=== PATIENT | male | born 1980 | race Caucasian/White ===

== ENCOUNTER 2017-04-16 19:40 | Emergency (ER) | payer BC ==
[2017-04-16 19:50] VITALS: BP 125/75
[2017-04-16] MEDS ORDERED: TETRACAINE 0.5% OPHTH SOLUTION 4ML BOTTLE. OS ONE (20:15)
[2017-04-16] MEDS ORDERED: FLUORESCEIN OPHTH TEST STRIP. OS ONE (20:15)
[2017-04-16] MEDS ORDERED: ERYT1OIN6 OP (20:30)
[2017-04-16] MEDS ORDERED: HYDR-971 PO (20:30)
--- NOTE | 2017-04-16 20:30 | PHYS DOC ---
Past Medical History Past Medical History: Other Additional Past Medical Histor: hodgkin's lymphoma Past Surgical History: Tonsillectomy, Other Additional Past Surgical Histo: lymphoma, addenectomy Alcohol Use: Occasionally Drug Use: None Adult General Chief Complaint Chief Complaint: FOREIGN BODY/EYES HPI HPI Patient is a 37 year old male who presents stating he believes a piece of metal got into his left eye today. Patient denies any vision loss Review of Systems Review of Systems Constitutional: Denies fever or chills [] Eyes: a piece of metal got into his left eye Musculoskeletal: Denies back pain or joint pain [] Integument: Denies rash or skin lesions [] Neurologic: Denies headache, focal weakness or sensory changes [] Current Medications Current Medications Current Medications Medications (Trade) Dose Ordered Sig/Meenu Start Time Stop Time Status Last Admin Dose Admin Diphtheria/ Tetanus/Acell Pertussis (Boostrix) 0.5 ml ONCE ONCE 04/16/17 21:00 04/16/17 21:01 Fluorescein Sodium (Ful-Juli) 1 strip 1X ONCE 04/16/17 20:15 04/16/17 20:16 DC 04/16/17 20:15 1 STRIP Tetracaine HCl (Tetracaine) 1 drop 1X ONCE 04/16/17 20:15 04/16/17 20:16 DC 04/16/17 20:15 1 DROP Allergies Allergies Allergies Coded Allergies Type Severity Reaction Last Updated Verified promethazine Allergy Intermediate 04/16/17 Yes Physical Exam Physical Exam Constitutional: Well developed, well nourished, no acute distress, non-toxic appearance. [] HENT: Normocephalic, atraumatic, bilateral external ears normal, oropharynx moist, no oral exudates, nose normal. [] Eyes: PERRLA, EOMI, left cornea with an obvious rust ring at approximately 1500 position Skin: Warm, dry, no erythema, no rash. [] Back: No tenderness, no CVA tenderness. [] Extremities: No tenderness, no cyanosis, no clubbing, ROM intact, no edema. [] Neurologic: Alert and oriented X 3, normal motor function, normal sensory function, no focal deficits noted. [] Current Patient Data Vital Signs Vital Signs Date Time Temp Pulse Resp B/P (MAP) Pulse Ox O2 Delivery O2 Flow Rate FiO2 04/16/17 19:50 97.9 67 18 100 Room Air 97.9 EKG EKG [] Radiology/Procedures Radiology/Procedures [] Course & Med Decision Making Course & Med Decision Making Pertinent Labs and Imaging studies reviewed. (See chart for details) Patient has a rust ring on the left cornea. Discharged with erythromycin eye ointment and instructed to follow-up with the fruit sorter on Wednesday for removal. Discharged with with hydrocodone as needed for pain. Tetanus updated. Dragon Disclaimer Dragon Disclaimer This electronic medical record was generated, in whole or in part, using a voice recognition dictation system. Departure Departure Impression: Primary Impression: Eye foreign body Disposition: HOME, SELF-CARE Condition: STABLE Referrals: NO PCP (PCP) Marv WHITE MD follow up in one week Patient Instructions: Eye - Foreign Body, [id number] Additional Instructions: You have a foreign body to the right eye. Follow-up with the provided fruit sorter on Wednesday for removal. You can patch the eye for comfort. Use the prescribed antibiotic ointment as ordered. Scripts Hydrocodone/Apap 5-325 (NORCO 5-325 TABLET) 1 Each Tablet 1 TAB PO PRN Q6HRS Y for PAIN, #20 TAB 0 Refills Prov: KING SOTELO APRN 04/16/17 Erythromycin Base (Erythromycin) 1 Gm Oint...g. 1 APPLIC OP Q4HRS W/A, #1 MISC Prov: KING SOTELO APRN 04/16/17 Problem Qualifiers Primary Impression: Eye foreign body Encounter type: initial encounter Laterality: right Qualified Codes: T15.91XA - Foreign body on external eye, part unspecified, right eye, initial encounter KING SOTELO APRN Apr 16, 2017 20:30
[2017-04-16] MEDS ORDERED: DIPHTH,PERTUSS(ACELL),TET TOX 0.5 ML DISP.SYRIN. VAX IM ONE (21:00)
== END 2017-04-16 20:35 | disposition home or self-care (01) ==
LOC: ER 19:40
DX: T15.92XA Foreign body on external eye, part unspecified, left eye, initial encounter (principal); Z85.71 Personal history of Hodgkin lymphoma; Z88.8 Allergy status to other drugs, medicaments and biological substances
CPT/HCPCS: 90471; 90715; 99283-25

== ENCOUNTER 2021-04-15 12:45 | Emergency (ER) | payer BC ==
[~2021-04-15] VITALS: Ht 175.3 cm; Wt 109.0 kg
[~2021-04-15 12:45] MED LIST: ERYT1OIN6 OP; HYDR-3164 PO
[2021-04-15 15:00] LABS: BASO # 0.1 x10^3/uL (0.0-0.2); BASO % 1 % (0-3); BILIRUBIN,URINE NEGATIVE (NEG); CLARITY,URINE CLEAR; COLOR,URINE YELLOW; EOS # 0.3 x10^3/uL (0.0-0.7); EOS % 3 % (0-3); HEMATOCRIT 49.2 % (39.0-53.0); HEMOGLOBIN 17.1 g/dL (13.0-17.5); LYMPH # 1.6 x10^3/uL (1.0-4.8); LYMPH % 14 % (24-48); MEAN CORPUSCULAR HEMOGLOBIN 31 pg (25-35); MEAN CORPUSCULAR HGB CONC 35 g/dL (31-37); MEAN CORPUSCULAR VOLUME 90 fL (79-100); MONO % 9 % (0-9); NEUT % 73 % (31-73); NITRITE,URINE NEGATIVE (NEG); PLATELET COUNT 313 x10^3/uL (140-400); PROTEIN,URINE NEGATIVE (NEG-TRACE); RED BLOOD COUNT 5.49 x10^6/uL (4.30-5.70); RED CELL DISTRIBUTION WIDTH 12.6 % (11.5-14.5); UROBILINOGEN,URINE 0.2 mg/dL (0.2 mg/dL); WHITE BLOOD COUNT 10.9 x10^3/uL (4.0-11.0)
[2021-04-15 15:05] LABS: BACTERIA,URINE 0 /HPF (0-FEW); RBC,URINE OCC /HPF (0-2); WBC,URINE 0 /HPF (0-4)
[2021-04-15] MEDS ORDERED: MORPHINE SULFATE 4 MG/ML INJ. IVP ONE (15:15)
[2021-04-15] MEDS ORDERED: ONDANSETRON PF 4 MG/2 ML VIAL. IVP ONE (15:15)
[2021-04-15] MEDS ORDERED: IV NORMAL SALINE 1000ML BAG 1,000 ML IV SCH (15:15)
--- NOTE | 2021-04-15 15:15 | PHYS DOC ---
Past Medical History Past Medical History: Other Additional Past Medical Histor: hodgkin's lymphoma Past Surgical History: Tonsillectomy, Other Additional Past Surgical Histo: lymphoma, addenectomy, ADNOIDS Smoking Status: Never Smoker Alcohol Use: None Drug Use: None General Adult EDM: Chief Complaint: ABDOMINAL PAIN Problems: (1) Abdominal pain HPI: HPI: 41-year-old male complaining of right lateral abdominal pain for the past 4 days. He reports the pain is progressively gotten worse, now spreading up from the right lower quadrant. He reported spine Anastasia tenderness is in the right lower quadrant as of now. He also has some diarrhea over the last 4 days associated with some nausea and vomiting. He also reports intermittent fever and chills with the right lower quadrant pain. He denies any urinary changes. He has never had surgery in his abdomen but he does have a history of Hodgkin's lymphoma in the past. The patient denies chest pain, shortness of breath, abdominal pain, urinary symptoms, cough, recent trauma, recent illness, Covid contact or any other complaints. Review of Systems: Review of Systems: Constitutional: Denies fever or chills. Eyes: Denies change in vision, pain. HENT: Denies congestion or sore throat. Respiratory: Denies cough or shortness of breath. Cardiovascular: Denies chest pain or edema. GI: +abdominal pain, nausea, diarrhea; denies vomiting. : Denies change in urination, dysuria. Musculoskeletal: Denies extremity pain, or trauma. Skin: Denies rash, skin change. Neurologic: Denies headache, focal weakness. Psychiatric: Denies depression or anxiety. All other systems reviewed as negative except for what was mentioned in the HPI. Heart Score: C/O Chest Pain: No Family History: Family History: non contributory Current Medications: My Orders - ARA JEFFERSON DO Procedure Category Date Status Time Cbc W [place] LAB 04/15/21 Complete 14:47 Comprehensive LAB 04/15/21 In Process Metabolic Panel 14:47 Ua, Cult If Indicated LAB 04/15/21 Complete 14:47 Vital Signs Monitoring ER 04/15/21 Transmitted 15:07 Blood Pressure ER 04/15/21 Transmitted Monitoring 15:07 Cardiac Monitoring ER 04/15/21 Transmitted 15:07 Lipase LAB 04/15/21 Logged 15:07 Ct Abd Pelv W/ Iv CT 04/15/21 Logged Contrst Only 15:07 Pulse Oximetry: BRAD 04/15/21 In Process Standing Order 15:07 Iv Normal Saline PHA 04/15/21 In Process 1000ml Bag (Iv Sodium 15:15 Morphine Sulfate PHA 04/15/21 In Process (Morphine Sulfate) 15:15 Allergies: Allergies: Allergies Coded Allergies Type Severity Reaction Last Updated Verified promethazine Allergy Intermediate 04/16/17 Yes Physical Exam: PE: Constitutional: No acute distress, non-toxic appearance. HENT: Atraumatic, bilateral external ears normal, nose normal. Eyes: PERRLA, EOMI, conjunctiva normal, no discharge. Neck: Normal range of motion, supple, no stridor. Cardiovascular: Heart rate regular rhythm. 2+ radial pulses Lungs & Thorax: No respiratory distress, symmetrical expansion. Bilateral breath sounds clear to auscultation Abdomen: Soft, right lower quadrant tenderness, tenderness at McBurney's point Skin: Warm, dry. Extremities: No tenderness, no cyanosis, ROM intact, no edema. Neurologic: Alert and oriented X 3, normal motor function, normal sensory function, no focal deficits noted. Non ataxic gait. GCS 15. Psychologic: Affect normal, judgment normal, mood normal. Current Patient Data: Labs: Laboratory Tests Test 04/15/21 14:37 White Blood Count 10.9 x10^3/uL (4.0-11.0) Red Blood Count 5.49 x10^6/uL (4.30-5.70) Hemoglobin 17.1 g/dL (13.0-17.5) Hematocrit 49.2 % (39.0-53.0) Mean Corpuscular Volume 90 fL (79-100) Mean Corpuscular Hemoglobin 31 pg (25-35) Mean Corpuscular Hemoglobin Concent 35 g/dL (31-37) Red Cell Distribution Width 12.6 % (11.5-14.5) Platelet Count 313 x10^3/uL (140-400) Neutrophils (%) (Auto) 73 % (31-73) Lymphocytes (%) (Auto) 14 % (24-48) L Monocytes (%) (Auto) 9 % (0-9) Eosinophils (%) (Auto) 3 % (0-3) Basophils (%) (Auto) 1 % (0-3) Neutrophils # (Auto) 8.0 x10^3/uL (1.8-7.7) H Lymphocytes # (Auto) 1.6 x10^3/uL (1.0-4.8) Monocytes # (Auto) 1.0 x10^3/uL (0.0-1.1) Eosinophils # (Auto) 0.3 x10^3/uL (0.0-0.7) Basophils # (Auto) 0.1 x10^3/uL (0.0-0.2) Urine Collection Type Unknown Urine Color Yellow Urine Clarity Clear Urine pH 6.0 (<5.0-8.0) Urine Specific Dennison 1.020 (1.000-1.030) Urine Protein Negative mg/dL (NEG-TRACE) Urine Glucose (UA) Negative mg/dL (NEG) Urine Ketones (Stick) Negative mg/dL (NEG) Urine Blood Small (NEG) Urine Nitrite Negative (NEG) Urine Bilirubin Negative (NEG) Urine Urobilinogen Dipstick 0.2 mg/dL (0.2 mg/dL) Urine Leukocyte Esterase Negative (NEG) Urine RBC Occ /HPF (0-2) Urine WBC 0 /HPF (0-4) Urine Bacteria 0 /HPF (0-FEW) Urine Mucus Mod /LPF Laboratory Tests 04/15/21 14:37 Vital Signs: Vital Signs Date Time Temp Pulse Resp B/P (MAP) Pulse Ox O2 Delivery O2 Flow Rate FiO2 04/15/21 13:04 98.0 94 20 148/98 (92) 98 Room Air 98.0 Radiology/Procedures: Radiology/Procedures: CT ABDOMEN+PELVIS W History: Abdominal pain, right lower quadrant. Comparison: None. Technique: CT of the abdomen and pelvis after intravenous contrast. Findings: Lung bases are clear. Liver, gallbladder, pancreas, spleen, and adrenal glands are unremarkable. There is a 1.9 cm right renal cyst. No hydronephrosis or nephrolithiasis. Diffuse wall thickening throughout the colon most prominently at the cecum and ascending colon and somewhat sparing the sigmoid and rectum. Pericolonic inflammatory fat stranding is present. There is shotty mesenteric adenopathy. No significant diverticulosis. The stomach is decompressed. The small bowel is unremarkable. The appendix is at least partially visualized and appears normal. The bladder is decompressed. Prostate is unremarkable. Incidental circumaortic left renal veins. Otherwise unremarkable abdominal pelvic vasculature. Soft tissues are unremarkable. Osseous structures within normal limits. Impression: 1. Findings compatible with colitis most prominent at the cecum and ascending colon but also involving the transverse and descending. No significant diverticular disease. This may represent inflammatory bowel disease such as Crohn's, however the terminal ileum appears spared. Infectious or neutropenic colitis is also possible. No significant atherosclerotic disease to suggest ischemic etiology. Course & Med Decision Making: Course & Med Decision Making Work-up today was suggestive of a infectious colitis, we will treat the patient with Flagyl and ciprofloxacin, he did not have any peritoneal signs and there is no signs of appendicitis on CT. Patient was comfortable with plan Departure Departure Impression: Primary Impression: Colitis Disposition: HOME / SELF CARE / HOMELESS Condition: STABLE Referrals: DENTON REED DO (PCP) Patient Instructions: Colitis Additional Instructions: You have been given a prescription for flagyl and ciprofloxacin. This medicine is an antibiotic for colitis. Please take as prescribed for the full course of the prescription. Do not stop taking the medicine early if you feel better, as this could risk building antibiotic resistance and may put you at risk for a more harmful infection later. [facility] in [place] The most common side effect of antibiotics include nausea, vomiting, diarrhea and rash. Please come to be evaluated if you develop any symptoms that are concerning to you. One major adverse effect of antibiotics is the development of a diarrheal illness called c. diff colitis, if you develop an excessive amount of diarrhea or are concerned about this please return to the ER or consult a physician. You were seen in the emergency department for abdominal pain. Your tests were suggestive of colitis, which is not a dangerous diagnosis at this time. This however can change early in a disease course. You must return to the ED if you develop any new or worrisome symptoms for another exam. - Make sure to drink plenty of fluids at home - You may take a gentle laxative such as Miralax (over the counter) for bowel comfort. - Avoid drinking alcohol while you are having abdominal pain as this may worsen symptoms. - Return to the ER if you are not able to tolerate water and/or a normal diet, have increased pain or a change in character of your pain, develop a fever (>100.3 F), have nausea, vomiting and/or diarrhea that is unable to be treated at home, pass out, and/or you are not able to perform you normal daily activity. Scripts Ciprofloxacin Hcl (CIPROFLOXACIN HCL) 500 Mg Tablet 1 TAB PO BID, #14 TAB Prov: ARA JEFFERSON DO 04/15/21 Metronidazole (FLAGYL) 500 Mg Tablet 1 TAB PO TID for 7 Days, #21 TAB Prov: ARA JEFFERSON DO 04/15/21 ARA JEFFERSON DO Apr 15, 2021 15:15
[2021-04-15 15:34] LABS: CALCIUM 9.3 mg/dL (8.5-10.1); CREATININE 0.9 mg/dL (0.7-1.3); POTASSIUM 4.6 mmol/L (3.5-5.1)
[2021-04-15 15:39] LABS: TOTAL BILIRUBIN 1.5 mg/dL (0.2-1.0); TOTAL PROTEIN 8.2 g/dL (6.4-8.2)
[2021-04-15] MEDS ORDERED: IOHEXOL 300 MG/ML 100ML VIAL. IV ONE (16:00)
[2021-04-15] MEDS ORDERED: CONTRAST GIVEN. MC PRN (16:00)
--- NOTE | 2021-04-15 16:30 | RAD ---
CT ABDOMEN+PELVIS W History: Abdominal pain, right lower quadrant. Comparison: None. Technique: CT of the abdomen and pelvis after intravenous contrast. Findings: Lung bases are clear. Liver, gallbladder, pancreas, spleen, and adrenal glands are unremarkable. Ther e is a 1.9 cm right renal cyst. No hydronephrosis or nephrolithiasis. Diffuse wall thickening throughout the colon most prominently at the cecum and ascending colon and so mewhat sparing the sigmoid and rectum. Pericolonic inflammatory fat stranding is present. There is sh otty mesenteric adenopathy. No significant diverticulosis. The stomach is decompressed. The small bowel is unremarkable. The appendix is at least partially visu alized and appears normal. The bladder is decompressed. Prostate is unremarkable. Incidental circumao rtic left renal veins. Otherwise unremarkable abdominal pelvic vasculature. Soft tissues are unremarkable. Osseous structures within normal limits. Impression: 1. Findings compatible with colitis most prominent at the cecum and ascending colon but also involvi ng the transverse and descending. No significant diverticular disease. This may represent inflammator y bowel disease such as Crohn's, however the terminal ileum appears spared. Infectious or neutropenic colitis is also possible. No significant atherosclerotic disease to suggest ischemic etiology. ------ Exposure: One or more of the following individualized dose reduction techniques were utilized for thi s examination: 1. Automated exposure control 2. Adjustment of the mA and/or kV according to patient size 3. Use of iterative reconstruction technique. Electronically signed by: Johnathon Mo MD (04/15/2021 4:28 PM) [id number]
[2021-04-15] MEDS ORDERED: METR500T PO (16:46)
[2021-04-15] MEDS ORDERED: CIPR500T2 PO (16:46)
[2021-04-15 17:08] VITALS: BP 133/81
== END 2021-04-15 17:30 | disposition home or self-care (01) ==
LOC: ER 12:45
DX: K52.9 Noninfective gastroenteritis and colitis, unspecified (principal)
CPT/HCPCS: 36415; 74177; 80053; 81001; 83690; 85025; 96361; 96374; 96375; 99285; J2270; J2405; J7030; Q9967